=== PATIENT | male | born 1955 | race Caucasian/White ===

== ENCOUNTER 2021-06-02 06:21 | Day surgery (SDC) | payer BC ==
[~2021-06-02] VITALS: Ht 198.1 cm; Wt 172.4 kg
[~2021-06-02 06:21] MED LIST: ACET325T82 PO; ALLO300T2 PO; AMLO-489 PO; CHOL100067 PO; COLC1TAB3 PO; LEVO25TA6 PO; LOSA-69 PO; OMEP-434 PO; PREG100C PO; VILA20TA PO
[2021-06-02] MEDS ORDERED: ceFAZolin 1GM/50ML 150 ML IV ONE (06:46)
[2021-06-02] MEDS ORDERED: BUPIVACAINE 0.25% INJ 50ML VIAL ONE (07:21)
[2021-06-02] MEDS ORDERED: LIDOCAINE 1% HCL (LOCAL ANESTH.) INJ 20ML MDV ONE (07:21)
[2021-06-02] MEDS ORDERED: SUCCINYLCHOLINE CHLORIDE 20 MG/ML 10ML VIAL IV ONE (07:33)
[2021-06-02] MEDS ORDERED: LIDOCAINE 2% (LOCAL ANESTH.) PF 5ml SDV ONE (07:37)
[2021-06-02] MEDS ORDERED: MIDAZOLAM HCL 2MG/2ML 2ml VIAL (1mg/ml) ONE (07:37)
[2021-06-02] MEDS ORDERED: fentaNYL CITRATE 5 ML ONE (07:37)
[2021-06-02] MEDS ORDERED: ONDANSETRON HCL 4 MG/2 ML VIAL ONE (07:37)
[2021-06-02] MEDS ORDERED: ROCURONIUM 10MG/ML 10ML VIAL IV ONE (07:48)
[2021-06-02] MEDS ORDERED: NEOSTIGMINE 1 MG/ML INJ (10mg/10ML VIAL) ONE (08:46)
[2021-06-02] MEDS ORDERED: PROPOFOL 10 MG/ML 20 ML IV ONE (08:46)
[2021-06-02] MEDS ORDERED: GLYCOPYRROLATE 0.2 MG/ML 1ML VIAL ONE (08:46)
[2021-06-02 09:00] VITALS: BP 111/76
== END 2021-06-02 09:10 | disposition home or self-care (01) ==
LOC: SUR 06:21
PROVIDERS: ATTEND Orthopaedic Surgery Hand Surgery
DX: S56.312A Strain of extensor or abductor muscles, fascia and tendons of left thumb at forearm level, initial encounter (principal); K21.9 Gastro-esophageal reflux disease without esophagitis; E78.5 Hyperlipidemia, unspecified; M10.9 Gout, unspecified; E03.9 Hypothyroidism, unspecified; M19.90 Unspecified osteoarthritis, unspecified site; I10 Essential (primary) hypertension; F32.9 Major depressive disorder, single episode, unspecified; Z20.822 Contact with and (suspected) exposure to COVID-19; Z68.41 Body mass index [BMI] 40.0-44.9, adult; X58.XXXA Exposure to other specified factors, initial encounter; Y93.89 Activity, other specified; Y92.89 Other specified places as the place of occurrence of the external cause; Y99.8 Other external cause status
CPT/HCPCS: 26410; J0330; J0690; J2001; J2250; J2405; J2704; J3010; J3490; U0003